=== PATIENT | female | born 1985 | race Caucasian/White ===

== ENCOUNTER → 2022-02-01 | Outpatient (REF) | payer OTHER ==
[2022-02-01 17:25] LABS: APPEARANCE, URINE MANUAL CLEAR (CLEAR); COLOR, URINE MANUAL YELLOW (YELLOW)
[2022-02-01 17:26] LABS: BILIRUBIN, URINE MANUAL NEGATIVE (NEGATIVE); BLOOD URINE MANUAL NEGATIVE (NEGATIVE); GLUCOSE, URINE (UA) MANUAL NEGATIVE (NEGATIVE); KETONE, URINE MANUAL NEGATIVE (NEGATIVE); LEUKOCYTE ESTERASE, URINE MAN TRACE (NEGATIVE); NITRITE, URINE MANUAL NEGATIVE (NEGATIVE); PROTEIN, URINE MANUAL NEGATIVE (NEGATIVE); SPECIFIC GRAVITY,URINE MANUAL 1.015 (1.002-1.035); UROBILINOGEN, URINE MANUAL NORMAL (NORMAL)
[2022-02-01 17:28] LABS: URINE PREG TEST NEGATIVE (NEGATIVE)
[2022-02-01 17:47] LABS: BACTERIA, URINE SMALL AMOUNT; HYALINE CAST, URINE NONE SEEN /lpf (0-1); RBC, URINE 0-1 /hpf (0-3); SQUAMOUS EPITHELIAL CELL URINE LARGE AMOUNT /hpf (SMALL AMT)
[2022-02-01 17:48] LABS: AMORPHOUS SEDIMENT, URINE MOD AMOUNT (NEGATIVE); MUCUS, URINE MOD AMOUNT (NEGATIVE)
[2022-02-01 18:11] LABS: GC DNA AMPLIFICATION NEGATIVE (NEGATIVE)
== END ==
LOC: M LAB REF 16:08
PROVIDERS: ATTEND Physician Assistant Medical
DX: Z11.3 Encounter for screening for infections with a predominantly sexual mode of transmission (principal)

== ENCOUNTER → 2022-04-05 | Outpatient (CLI) | payer MEDICAID, OTHER ==
[2022-04-05 12:09] LABS: ALBUMIN 3.5 G/DL (3.2-5.2); ALKALINE PHOSPHATASE 70 U/L (46-116); ALT/SGPT 168 U/L (7.0-40); AST/SGOT 167 U/L (<34); BILIRUBIN,TOTAL 0.3 MG/DL (0.3-1.2); BLOOD UREA NITROGEN 8 MG/DL (9-23); CALCIUM LEVEL 8.6 MG/DL (8.5-10.1); CARBON DIOXIDE LEVEL 28 MMOL/L (20-31); CHLORIDE LEVEL 108 MMOL/L (98-107); CREATININE FOR GFR 0.66 MG/DL (0.55-1.30); GLOMERULAR FILTRATION RATE > 60.0 (>60); GLUCOSE, FASTING 108 MG/DL (60-100); POTASSIUM SERUM 4.1 MMOL/L (3.5-5.1); SODIUM LEVEL 139 MMOL/L (136-145); TOTAL PROTEIN 7.4 G/DL (5.7-8.2)
[2022-04-05 12:24] LABS: HEPATITIS B SURFACE ANTIGEN NEGATIVE (NEGATIVE)
[2022-04-05 13:11] LABS: GC DNA AMPLIFICATION NEGATIVE (NEGATIVE)
== END ==
LOC: M LAB 10:37
PROVIDERS: ATTEND Internal Medicine Infectious Disease
DX: B20 Human immunodeficiency virus [HIV] disease (principal); B18.2 Chronic viral hepatitis C

== ENCOUNTER → 2022-04-22 | Outpatient (CLI) | payer MEDICAID, MEDICARE | LOC: M SOG 09:49 | PROVIDERS: ATTEND Physician Assistant | DX: M25.531 Pain in right wrist (principal); M25.532 Pain in left wrist ==

== ENCOUNTER → 2022-05-17 | Outpatient (CLI) | payer OTHER | LOC: M RAD 09:02 | PROVIDERS: ATTEND Nurse Practitioner Family | DX: M25.561 Pain in right knee (principal) ==

== ENCOUNTER 2022-06-20 07:52 | Day surgery (SDC) | payer OTHER ==
[~2022-06-20] VITALS: Ht 160 cm; Wt 102.7 kg
[~2022-06-20 07:52] MED LIST: CLAR5TAB7 PO; IBUP1TAB7 PO; NEUR600T PO; SOFO1TAB PO; SUBO12MI SL; TRAZ-257 PO; [UNRECOGNIZED DRUG - CODE] IM
[2022-06-20] MEDS ORDERED: ONDANSETRON 4MG 2ML VIAL As Ordered ONE (07:56)
[2022-06-20] MEDS ORDERED: propofoL 200 MG/20 ML VIAL As Ordered ONE (07:56)
[2022-06-20] MEDS ORDERED: LIDOCAINE 2% 100MG/5ML SDV (FOR ANES.) As Ordered ONE (07:56)
[2022-06-20] MEDS ORDERED: fentaNYL 250 MCG/5 ML INJECTION As Ordered ONE (07:56)
[2022-06-20] MEDS ORDERED: MIDAZOLAM INJ 2MG/2ML VIAL As Ordered ONE (07:56)
[2022-06-20] MEDS ORDERED: KETOROLAC 60MG 2ML VIAL As Ordered ONE (07:56)
[2022-06-20] MEDS ORDERED: ACETAMINOPHEN 1000MG 100ML IV BAG As Ordered ONE (07:59)
[2022-06-20] MEDS ORDERED: LR 1,000 ML IV SCH ×2 (08:00→10:50)
[2022-06-20] MEDS ORDERED: KETAMINE HCL 200MG/20ML VIAL As Ordered ONE (09:19)
[2022-06-20] MEDS ORDERED: GLYCOPYRROLATE INJ 0.2 MG/ML 2 ML VIAL As Ordered ONE (09:20)
[2022-06-20] MEDS ORDERED: PHENYLephrine 500MCG 5ML (100MCG/ML) SYRINGE As Ordered ONE (10:22)
[2022-06-20] MEDS ORDERED: BUPIVACAINE HCL 0.25% 30ML VIAL As Ordered ONE (10:41)
[2022-06-20] MEDS ORDERED: BACITRACIN OINTMENT 30GM TUBE As Ordered ONE (10:41)
[2022-06-20] MEDS ORDERED: ONDANSETRON 4MG 2ML VIAL IV PRN (10:50)
[2022-06-20] MEDS ORDERED: fentaNYL 100 MCG/2 ML INJECTION IV PRN (10:50)
[2022-06-20] MEDS ORDERED: HYDROMORPHONE HCL 0.5 MG/ 0.5 ML SYRINGE IV PRN (10:50)
[2022-06-20] MEDS: oxyCODONE 5MG TAB PO PRN ×2 (11:11→11:38)
[2022-06-20 11:49] VITALS: BP 118/72
== END 2022-06-20 12:14 | disposition home or self-care (01) ==
LOC: M SDC 07:52
PROVIDERS: ATTEND Orthopaedic Surgery Hand Surgery
DX: G56.01 Carpal tunnel syndrome, right upper limb (principal); K74.60 Unspecified cirrhosis of liver; B19.20 Unspecified viral hepatitis C without hepatic coma; B20 Human immunodeficiency virus [HIV] disease; Z86.14 Personal history of Methicillin resistant Staphylococcus aureus infection; M17.0 Bilateral primary osteoarthritis of knee; F41.9 Anxiety disorder, unspecified; F17.210 Nicotine dependence, cigarettes, uncomplicated; F11.21 Opioid dependence, in remission; Z88.5 Allergy status to narcotic agent; Z79.899 Other long term (current) drug therapy
CPT/HCPCS: 29848; 81025; J0131; J1100; J1885; J2250; J2370; J2405; J3010